=== PATIENT | male | born 1955 | race Caucasian/White ===

== ENCOUNTER 2024-11-25 19:19 | Inpatient (IN) | payer MEDICAID ==
[~2024-11-25] VITALS: Ht 177.8 cm; Wt 73.0 kg
[2024-11-25 19:24] VITALS: O2SAT 99
[2024-11-25] MEDS: DEXAMETHASONE 10 MG/ML VIAL IV ONE (19:55)
[2024-11-25] MEDS: LABETALOL 5MG/ML 4ML INJ IV ONE (19:55)
[2024-11-25] MEDS: ONDANSETRON HCL 4MG/2ML INJ IV ONE (20:03)
[2024-11-25] MEDS: NICARDIPINE 40MG/200ML PREMIX 200 ML IV STA (20:07)
[2024-11-25 20:09] LABS: BASOPHILS % 1.0 % (0.0-2.0); EOSINOPHILS % 3.2 % (0.0-5.0); HEMATOCRIT. 36.1 % (42.0-52.0); HEMOGLOBIN. 12.0 g/dL (14.0-18.0); LYMPHOCYTES % 9.1 % (20.0-50.0); MEAN PLATELET VOLUME 11.9 fl (7.4-10.4); MONOCYTES % 8.7 % (2.0-8.0); NEUTROPHILS % 78.0 % (40.0-76.0); PLATELET 133 x1000/uL (130-400); RED BLOOD CELL COUNT 3.90 mill/uL (4.7-6.1); RED CELL DISTRIBUTION WIDTH 15.2 % (11.6-14.6)
[2024-11-25 20:20] LABS: INR 1.0
[2024-11-25 20:22] LABS: CREATININE 1.6 mg/dL (0.6-1.3)
[2024-11-25 20:23] LABS: UREA NITROGEN BLOOD 36 mg/dL (9-23)
[2024-11-25 20:24] LABS: ASPARTATE AMINOTRANSFERASE 21 IU/L (<34)
[2024-11-25 20:25] LABS: BILIRUBIN DIRECT 0.1 mg/dL (<=3.0); BILIRUBIN TOTAL 0.4 mg/dL (0.1-1.0); PROTEIN TOTAL 6.2 g/dL (6.0-8.3)
[2024-11-25] MEDS: LEVETIRACETAM 1000MG PREMIX 100 ML IV SCH (20:35)
[2024-11-25] MEDS ORDERED: ACETAMINOPHEN 325MG TABLET PO PRN (22:45)
[2024-11-25] MEDS ORDERED: IPRATROPIUM/ALBUTEROL 0.5-3(2.5)MG/3ML NEB HHN PRN (22:45)
[2024-11-25] MEDS: DEXT 5%/0.45% NACL 1000ML 1,000 ML IV SCH (23:15)
[2024-11-25] MEDS ORDERED: NICARDIPINE 40MG/200ML PREMIX 200 ML IV PRN (23:30)
[2024-11-25] MEDS: IOHEXOL-350 100 ML BOTTLE ONE (23:41)
[2024-11-26] VITALS (92 sets, daily range): BP systolic 115–171; BP diastolic 47–96; PULSE 53–82; RESP 11–24; TEMP 36.5–37; O2SAT 90–100
[2024-11-26] MEDS: DEXT 5%/LACTATED RINGERS 1,000 ML IV SCH (00:41)
[2024-11-26] MEDS ORDERED: NICARDIPINE 40MG/200ML PREMIX 200 ML IV PRN (00:45)
[2024-11-26] MEDS: NICARDIPINE 50 MG in SODIUM CHLORIDE 0.9% 250 ML IV PRN (02:07)
[2024-11-26 02:38] LABS: TROPONIN I HIGH SENSITIVITY 20 ng/L (3.0-53)
[2024-11-26 04:24] LABS: BG BASE EXCESS -3.4 mmol/L (-2.0-3.0); BG CARBOXYHEMOGLOBIN 1.5 % (0.5-1.5); BG DEOXYHEMOGLOBIN 3.4 % (0.0-5.0); BG FRACTION INSPIRED OXYGEN 21; BG HCO3 ACT 20.7 mmol/L (21.0-28.0); BG METHEMOGLOBIN 0.3 % (0.5-1.5); BG OXYGEN SATURATION 96.5 % (94.0-98.0); BG OXYHEMOGLOBIN 94.8 % (94.0-98.0); BG PCO2 34.5 mmHg (35.0-48.0); BG PH 7.397 (7.350-7.450); BG PO2 81.9 mmHg (83.0-108.0); BG SAMPLE SITE RIGHT RADIAL; BG TOTAL HEMOGLOBIN 13.5 g/dL (13.5-17.5); BG VENT MODE ROOM AIR
[2024-11-26 05:28] LABS: HEMATOCRIT. 39.3 % (42.0-52.0); HEMOGLOBIN. 13.0 g/dL (14.0-18.0); MEAN PLATELET VOLUME 11.6 fl (7.4-10.4); PLATELET 128 x1000/uL (130-400); RED BLOOD CELL COUNT 4.22 mill/uL (4.7-6.1); RED CELL DISTRIBUTION WIDTH 15.0 % (11.6-14.6)
[2024-11-26] MEDS: DEXAMETHASONE 4MG/ML 1ML VIAL IV SCH (05:49)
[2024-11-26 05:50] LABS: TROPONIN I HIGH SENSITIVITY 16 ng/L (3.0-53)
[2024-11-26 05:54] LABS: CREATININE 1.2 mg/dL (0.6-1.3); T4 FREE 1.05 ng/dL (0.89-1.76)
[2024-11-26 05:55] LABS: LDL CHOLESTEROL 88 mg/dL (5-100); TRIGLYCERIDE 76 mg/dL (0-150); UREA NITROGEN BLOOD 29 mg/dL (9-23)
[2024-11-26 07:01] LABS: HEPATITIS C AB NON REACTIVE (Neg) (Negative)
[2024-11-26] MEDS: LEVETIRACETAM 500MG PREMIX 100ML IV SCH (08:17)
[2024-11-26] MEDS: PANTOPRAZOLE SODIUM 40 MG/VIAL IV SCH (08:17)
[2024-11-26] MEDS ORDERED: LEVETIRACETAM 500MG in NACL 100ML PREMIX IV SCH (09:00)
[2024-11-26 11:36] LABS: CLARITY URINE CLEAR (CLEAR); COLOR URINE YELLOW (YELLOW); GLUCOSE URINE TRACE (NEGATIVE); KETONES URINE NEGATIVE (NEGATIVE); PH URINE 6.0 (4.5-8.0); PROTEIN URINE 1+ (NEGATIVE); SPECIFIC GRAVITY URINE 1.046 (1.005-1.030)
[2024-11-26 11:37] LABS: LEUKOCYTE ESTERASE URINE NEGATIVE (NEGATIVE); NITRITE URINE NEGATIVE (NEGATIVE); OCCULT BLOOD URINE NEGATIVE (NEGATIVE); UROBILINOGEN URINE 0.2 E.U./dL (0.2-1.0)
[2024-11-26 12:04] LABS: RBC URINE 0-2 /hpf (0-2); WBC URINE 0-2 /hpf (0-2)
[2024-11-26 12:05] LABS: SQUAMOUS EPITHELIAL CELL URINE RARE /lpf (RARE/1+)
[2024-11-26 12:06] LABS: BACTERIA URINE NONE SEEN
[2024-11-26 12:12] LABS: *AMPHETAMINES SCREEN URINE NEGATIVE (NEGATIVE); *BARBITURATES SCREEN URINE NEGATIVE (NEGATIVE); *BENZODIAZEPINES SCREEN URINE NEGATIVE (NEGATIVE); *COCAINE SCREEN URINE PRESUMPTIVE POSITIVE (NEGATIVE)
[2024-11-26 12:13] LABS: CANNABINOID URINE SCREEN NEGATIVE (NEGATIVE); ECSTASY MDMA SCREEN URINE NEGATIVE (NEGATIVE); METHADONE URINE SCREEN NEGATIVE (NEGATIVE); OPIATES URINE SCREEN NEGATIVE (NEGATIVE); PHENCYCLIDINE URINE SCREEN NEGATIVE (NEGATIVE)
[2024-11-26 15:37] LABS: LYMPHOCYTES % MANUAL 5.0 % (20.0-50.0); MONOCYTES % MANUAL 2.0 % (2.0-8.0); NEUTROPHILS % MANUAL 93.0 % (45.0-75.0); PLATELET ESTIMATE DECREASED
[2024-11-26 16:08] LABS: TROPONIN I HIGH SENSITIVITY 11 ng/L (3.0-53)
[2024-11-26] MEDS ORDERED: ONDANSETRON HCL 4MG/2ML INJ IV PRN (19:45)
[2024-11-27] VITALS (97 sets, daily range): BP systolic 87–187; BP diastolic 66–141; PULSE 51–71; RESP 9–23; TEMP 36.6–36.9; O2SAT 93–100
[2024-11-27 05:59] LABS: HEMATOCRIT. 37.6 % (42.0-52.0); HEMOGLOBIN. 12.3 g/dL (14.0-18.0); MEAN PLATELET VOLUME 12.6 fl (7.4-10.4); PLATELET 134 x1000/uL (130-400); RED BLOOD CELL COUNT 4.03 mill/uL (4.7-6.1); RED CELL DISTRIBUTION WIDTH 15.0 % (11.6-14.6)
[2024-11-27 06:18] LABS: CREATININE 1.0 mg/dL (0.6-1.3)
[2024-11-27 06:19] LABS: UREA NITROGEN BLOOD 27 mg/dL (9-23)
[2024-11-27 06:21] LABS: PHOSPHORUS 3.4 mg/dL (2.5-4.9)
[2024-11-27] MEDS: HYDRALAZINE HCL 50MG TABLET PO SCH (09:23)
[2024-11-27] MEDS: AMLODIPINE 5MG TABLET PO SCH (09:24)
[2024-11-27] MEDS ORDERED: DEXTROSE 50% WATER 50ML SYRINGE IV PRN (12:45)
[2024-11-27] MEDS: MULTIVITAMINS,THER W-MINERALS TABLET PO SCH (13:50)
[2024-11-27] MEDS ORDERED: HYDRALAZINE HCL 50MG TABLET PO SCH (14:00)
[2024-11-27] MEDS: INSULIN LISPRO 100 UNITS/ML SUBCUT SCH (17:00)
[2024-11-27 17:14] LABS: LYMPHOCYTES % MANUAL 2.0 % (20.0-50.0); MONOCYTES % MANUAL 2.0 % (2.0-8.0); NEUTROPHILS % MANUAL 96.0 % (45.0-75.0); PLATELET ESTIMATE NORMAL
[2024-11-27] MEDS: BLOOD SUGAR DIAGNOSTIC STRIP TEST SCH (17:21)
[2024-11-28] VITALS (96 sets, daily range): BP systolic 101–173; BP diastolic 55–124; PULSE 54–116; RESP 11–25; TEMP 36.2–37; O2SAT 92–100
[2024-11-28 07:29] LABS: TRIGLYCERIDE 148.0 mg/dL (0-150)
[2024-11-28 07:30] LABS: LDL CHOLESTEROL 95.0 mg/dL (5-100)
[2024-11-28] MEDS: DOCUSATE SODIUM 100MG CAPSULE PO PRN (08:52)
[2024-11-28] MEDS: HYDROCHLOROTHIAZIDE 25MG TABLET PO SCH (09:45)
[2024-11-28] MEDS: THIAMINE HCL 100MG TABLET PO SCH (09:45)
[2024-11-28] MEDS: HYDRALAZINE HCL 100MG TABLET PO SCH (13:34)
[2024-11-28] MEDS: CLONIDINE 0.1MG TABLET PO PRN (13:35)
[2024-11-29] VITALS (66 sets, daily range): BP systolic 117–156; BP diastolic 60–89; PULSE 53–73; RESP 10–24; TEMP 36.2–36.6; O2SAT 90–99
[2024-11-29 03:16] LABS: CREATININE 1.1 mg/dL (0.6-1.3); UREA NITROGEN BLOOD 23 mg/dL (9-23)
[2024-11-29] MEDS: ONDANSETRON HCL 4MG/2ML INJ IV PRN (14:52)
[2024-11-29] MEDS: CHLORPROMAZINE HCL 10 MG TABLET PO PRN (16:26)
[2024-11-30] VITALS (7 sets, daily range): BP systolic 110–130; BP diastolic 49–69; PULSE 61–81; RESP 18–19; TEMP 36.1–37; O2SAT 96–100
[2024-11-30 07:18] LABS: BASOPHILS % 0.3 % (0.0-2.0); EOSINOPHILS % 2.6 % (0.0-5.0); HEMATOCRIT. 39.9 % (42.0-52.0); HEMOGLOBIN. 13.1 g/dL (14.0-18.0); LYMPHOCYTES % 14.2 % (20.0-50.0); MEAN PLATELET VOLUME 12.0 fl (7.4-10.4); MONOCYTES % 10.1 % (2.0-8.0); NEUTROPHILS % 72.8 % (40.0-76.0); PLATELET 123 x1000/uL (130-400); RED BLOOD CELL COUNT 4.33 mill/uL (4.7-6.1); RED CELL DISTRIBUTION WIDTH 15.1 % (11.6-14.6)
[2024-11-30 07:29] LABS: CREATININE 1.2 mg/dL (0.6-1.3)
[2024-11-30 07:30] LABS: UREA NITROGEN BLOOD 25 mg/dL (9-23)
[2024-11-30 07:32] LABS: PHOSPHORUS 3.2 mg/dL (2.5-4.9)
[2024-11-30] MEDS: POTASSIUM CHLORIDE 20MEQ/PACKET PO SCH (12:13)
[2024-12-01] VITALS: BP 128/68; PULSE 75; RESP 18; TEMP 36.4; O2SAT 98
[2024-12-01 04:00] VITALS: BP 131/72; PULSE 84; RESP 19; TEMP 36.5; O2SAT 99
[2024-12-01 08:00] VITALS: BP 125/63; PULSE 65; RESP 18; TEMP 36.7; O2SAT 97
[2024-12-01 12:00] VITALS: BP 120/76; PULSE 75; RESP 18; TEMP 35.9; O2SAT 97
[2024-12-01] MEDS ORDERED: KEPP500 MT (15:11)
[2024-12-01] MEDS ORDERED: HYDR25TA PO (15:11)
[2024-12-01] MEDS ORDERED: AMLO5TAB88 PO (15:11)
[2024-12-01] MEDS ORDERED: HYDR100T31 PO (15:11)
[2024-12-01 16:00] VITALS: BP 126/80; PULSE 66; RESP 18; TEMP 36.7; O2SAT 96
[2024-12-01 20:00] VITALS: BP 166/80; PULSE 82; RESP 18; TEMP 36.7; O2SAT 98
[2024-12-02] VITALS: BP 150/66; PULSE 82; RESP 18; TEMP 36.7; O2SAT 98
[2024-12-02 04:00] VITALS: BP 122/73; PULSE 70; RESP 18; TEMP 36.7; O2SAT 98
[2024-12-02 08:00] VITALS: BP 132/64; PULSE 79; RESP 18; TEMP 36.7; O2SAT 98
[2024-12-02 12:00] VITALS: BP 92/56; PULSE 66; RESP 18; TEMP 36.8; O2SAT 96
[2024-12-02] MEDS: HYDRALAZINE HCL 50MG TABLET PO SCH (13:40)
[2024-12-02] MEDS: POTASSIUM CHLORIDE 20MEQ/PACKET PO NR (13:41)
[2024-12-02 16:00] VITALS: BP_SYST 141; BP_SYST 97; BP_DIAS 49; BP_DIAS 58; PULSE 69; PULSE 77; RESP 18; TEMP 36.5; TEMP 37.2; O2SAT 97
[2024-12-02 16:59] LABS: BASOPHILS % 0.3 % (0.0-2.0); EOSINOPHILS % 2.0 % (0.0-5.0); HEMATOCRIT. 36.2 % (42.0-52.0); HEMOGLOBIN. 12.0 g/dL (14.0-18.0); LYMPHOCYTES % 7.7 % (20.0-50.0); MEAN PLATELET VOLUME 12.6 fl (7.4-10.4); MONOCYTES % 10.2 % (2.0-8.0); NEUTROPHILS % 79.8 % (40.0-76.0); PLATELET 122 x1000/uL (130-400); RED BLOOD CELL COUNT 3.90 mill/uL (4.7-6.1); RED CELL DISTRIBUTION WIDTH 14.7 % (11.6-14.6)
[2024-12-02 17:19] LABS: CREATININE 1.3 mg/dL (0.6-1.3); UREA NITROGEN BLOOD 29.0 mg/dL (9-23)
[2024-12-02 20:00] VITALS: BP 110/76; PULSE 70; RESP 20; TEMP 36.6; O2SAT 96
[2024-12-03] VITALS: BP 163/80; PULSE 67; RESP 18; TEMP 36.7; O2SAT 97
[2024-12-03 04:00] VITALS: BP 167/80; PULSE 68; RESP 18; TEMP 36.7; O2SAT 97
[2024-12-03 07:58] LABS: BASOPHILS % 0.4 % (0.0-2.0); EOSINOPHILS % 3.1 % (0.0-5.0); HEMATOCRIT. 34.6 % (42.0-52.0); HEMOGLOBIN. 11.7 g/dL (14.0-18.0); LYMPHOCYTES % 9.8 % (20.0-50.0); MEAN PLATELET VOLUME 12.5 fl (7.4-10.4); MONOCYTES % 12.8 % (2.0-8.0); NEUTROPHILS % 73.9 % (40.0-76.0); PLATELET 116 x1000/uL (130-400); RED BLOOD CELL COUNT 3.79 mill/uL (4.7-6.1); RED CELL DISTRIBUTION WIDTH 14.5 % (11.6-14.6)
[2024-12-03 08:00] VITALS: BP 145/78; PULSE 74; RESP 18; TEMP 36.6; O2SAT 96
[2024-12-03 08:08] LABS: CREATININE 1.1 mg/dL (0.6-1.3)
[2024-12-03 08:09] LABS: UREA NITROGEN BLOOD 25 mg/dL (9-23)
[2024-12-03 12:00] VITALS: BP 148/74; PULSE 72; RESP 16; TEMP 36.9; O2SAT 98
[2024-12-03 16:00] VITALS: BP 135/71; PULSE 79; RESP 18; TEMP 36.6; O2SAT 97
[2024-12-03 20:00] VITALS: BP 109/61; PULSE 90; RESP 16; TEMP 36.5; O2SAT 98
[2024-12-04] VITALS: BP 125/75; PULSE 86; RESP 18; TEMP 36.7; O2SAT 98
[2024-12-04 04:00] VITALS: BP 155/83; PULSE 65; RESP 17; TEMP 36.7; O2SAT 99
[2024-12-04 08:00] VITALS: BP 148/73; PULSE 78; RESP 18; TEMP 36.6; O2SAT 98
[2024-12-04 12:00] VITALS: BP 133/66; PULSE 62; RESP 16; TEMP 35.9; O2SAT 97
[2024-12-04 16:00] VITALS: BP 143/64; PULSE 85; RESP 17; TEMP 35.8; O2SAT 98
[2024-12-04 20:00] VITALS: BP 107/48; PULSE 79; RESP 16; TEMP 36.4; O2SAT 98
[2024-12-05] VITALS: BP 126/66; PULSE 73; RESP 18; TEMP 36.6; O2SAT 99
[2024-12-05 04:00] VITALS: BP 135/65; PULSE 66; RESP 18; TEMP 36.5; O2SAT 99
[2024-12-05 08:00] VITALS: BP 140/64; PULSE 71; RESP 18; TEMP 36.7; O2SAT 98
[2024-12-05 12:00] VITALS: BP 119/65; PULSE 69; RESP 18; TEMP 36.5; O2SAT 97
[2024-12-05 16:00] VITALS: BP 139/70; PULSE 74; RESP 18; TEMP 36.6; O2SAT 98
[2024-12-05 20:00] VITALS: BP 140/61; PULSE 75; RESP 18; TEMP 36.6; O2SAT 97
[2024-12-06] VITALS (8 sets, daily range): BP systolic 109–161; BP diastolic 51–79; PULSE 66–85; RESP 18–19; TEMP 36.4–36.7; O2SAT 97–100
[2024-12-07 04:38] VITALS: BP 121/58; PULSE 72; RESP 18; TEMP 36.7; O2SAT 100
[2024-12-07 08:00] VITALS: BP 125/74; PULSE 76; RESP 18; TEMP 36.6; O2SAT 98
[2024-12-07 12:00] VITALS: BP 125/67; PULSE 64; RESP 18; TEMP 36.6; O2SAT 99
[2024-12-08 16:00] VITALS: BP 129/73; PULSE 72; RESP 18; TEMP 36.8; O2SAT 98
[2024-12-08 20:00] VITALS: BP 137/59; PULSE 70; RESP 19; TEMP 36.5; O2SAT 98
[2024-12-09] VITALS: BP 128/63; PULSE 76; RESP 19; TEMP 35.5; O2SAT 98
[2024-12-09 04:00] VITALS: BP 120/58; PULSE 68; RESP 19; TEMP 36.6; O2SAT 98
[2024-12-09 08:00] VITALS: BP 115/61; PULSE 75; RESP 17; TEMP 35.9; O2SAT 99
[2024-12-09 12:00] VITALS: BP 114/59; PULSE 64; RESP 18; TEMP 36.5; O2SAT 96
[2024-12-09 20:00] VITALS: BP 116/68; PULSE 67; RESP 18; TEMP 36.6; O2SAT 96
[2024-12-10] VITALS: BP 109/46; PULSE 67; RESP 17; TEMP 36.5; O2SAT 95
[2024-12-10 04:00] VITALS: BP 126/57; PULSE 57; RESP 17; TEMP 36.5; O2SAT 97
[2024-12-10 06:09] LABS: PLATELET 149 x1000/uL (130-400); RED BLOOD CELL COUNT 3.74 mill/uL (4.7-6.1); RED CELL DISTRIBUTION WIDTH 14.3 % (11.6-14.6)
[2024-12-10 06:12] LABS: CREATININE 1.2 mg/dL (0.6-1.3); UREA NITROGEN BLOOD 29 mg/dL (9-23)
[2024-12-10 06:15] LABS: PHOSPHORUS 3.3 mg/dL (2.5-4.9)
[2024-12-10 08:00] VITALS: BP 152/72; PULSE 68; RESP 17; TEMP 36.7; O2SAT 98
[2024-12-10 12:00] VITALS: BP 142/79; PULSE 81; RESP 18; TEMP 36.5; O2SAT 99
[2024-12-10 12:47] VITALS: BP 142/79; PULSE 81; RESP 18; TEMP 97.7
== END 2024-12-10 13:38 | DRG 44 ==
LOC: ER 19:19 → MICUSO 22:29 → EDBEDREQTM 22:40 → EDBEDREQSVC 22:40 → EDBEDREQ 22:40 → ENRESERV 23:17 → 8WST 11-29 20:15 → 7EST 12-07 14:43
PROVIDERS: ADMIT Student in an Organized Health Care Education/Training Program; ATTEND Student in an Organized Health Care Education/Training Program
DX: I61.8 Other nontraumatic intracerebral hemorrhage (principal); N17.0 Acute kidney failure with tubular necrosis; I16.1 Hypertensive emergency; G81.91 Hemiplegia, unspecified affecting right dominant side; I11.0 Hypertensive heart disease with heart failure; N17.9 Acute kidney failure, unspecified; D64.9 Anemia, unspecified; F14.10 Cocaine abuse, uncomplicated; R13.10 Dysphagia, unspecified; F17.200 Nicotine dependence, unspecified, uncomplicated; I25.10 Atherosclerotic heart disease of native coronary artery without angina pectoris; R29.716 NIHSS score 16; R29.810 Facial weakness; R47.01 Aphasia; R27.0 Ataxia, unspecified; I95.9 Hypotension, unspecified; E87.6 Hypokalemia; R47.1 Dysarthria and anarthria; R06.6 Hiccough; F19.10 Other psychoactive substance abuse, uncomplicated; I50.30 Unspecified diastolic (congestive) heart failure; Z79.899 Other long term (current) drug therapy
CPT/HCPCS: 36415; 36600; 70496; 70498; 70551; 71045; 80048; 80061; 80076; 80305; 80320; 81003; 82375; 82550; 82805; 82962; 83036; 83540; 83550; 83605; 83735; 83880; 84100; 84145; 84439; 84443; 84484; 85025; 85027; 86705; 86850; 86900; 87340; 92523; 92610; 93005; 93306; 93970; 96365; 96367; 96375; 97110; 97112; 97116; 97162; 97166; 97530; 97535; 99291; A4606; A6449; G0378; J1100; J1815; J1953; J2405; J2470; J3490; J7050; J7121; Q9967; G0480